=== PATIENT | female | born 1980 | race Caucasian/White ===

== ENCOUNTER 2017-10-03 05:52 | Day surgery (SDC) | payer OTHER ==
[2017-10-02 16:19] LABS: BASOPHILS # (AUTO) 0.5 K/uL (0.00-0.22); EOSINOPHILS # (AUTO) 0.1 K/uL (0-0.4); HEMOGLOBIN 13.2 g/dL (12.0-16.0); LYMPHOCYTES # (AUTO) 2.3 K/uL (2.5-16.5); MEAN CORPUSCULAR HEMOGLOBIN 26 pg (27-31); MEAN CORPUSCULAR HGB CONC 33 g/dL (33-37); MEAN CORPUSCULAR VOLUME 80 fL (80-94); MONOCYTES # (AUTO) 0.5 K/uL (0.8-1.0); NEUTROPHILS # (AUTO) 5.5 K/uL (1.8-7.7); PLATELET COUNT (AUTO) 232 K/uL (140-450); RED CELL DISTRIBUTION WIDTH 14.1 % (11.6-13.7); WHITE BLOOD COUNT (AUTO) 8.9 K/uL (4.8-10.8)
[2017-10-02 16:48] LABS: ANION GAP 11.8 (8-16); CREATININE 0.7 mg/dL (0.6-1.3); POTASSIUM 3.8 mmol/L (3.5-5.1); TOTAL BILIRUBIN 0.2 mg/dL (0.0-1.0)
[~2017-10-03] VITALS: Ht 160 cm; Wt 1.4 kg
[2017-10-03] MEDS ORDERED: MORPHINE SULFATE 4 MG/ML SYR IM/IVP PRN (07:35)
[2017-10-03] MEDS ORDERED: ACETAMINOPHEN/CODEINE 300/30MG 1 TAB PO PRN (07:35)
[2017-10-03] MEDS ORDERED: ONDANSETRON 4 MG/2 ML VIAL IVP PRN ×2 (07:35→10:05)
[2017-10-03] MEDS ORDERED: IBUPROFEN 800 MG TAB PO PRN (07:35)
[2017-10-03] MEDS ORDERED: fentaNYL 0.05 MG/ML VIAL ONE (09:45)
[2017-10-03] MEDS ORDERED: MEPERIDINE 25 MG/ML SYR ONE (09:45)
[2017-10-03] MEDS ORDERED: PROPOFOL 200 MG/20 ML VIAL IV ONE (09:45)
[2017-10-03] MEDS ORDERED: MIDAZOLAM 2 MG/2 ML VIAL ONE (09:45)
[2017-10-03] MEDS ORDERED: LACTATED RINGERS 1,000 ML IV SCH (10:01)
[2017-10-03] MEDS ORDERED: HYDROmorphone 1 MG/ML AMP IVP PRN (10:05)
[2017-10-03] MEDS ORDERED: MEPERIDINE 25 MG/ML SYR IVP PRN (10:05)
[2017-10-03] MEDS ORDERED: diphenhydrAMINE 50 MG/ML VIAL IVP PRN (10:05)
== END 2017-10-03 11:45 | disposition home or self-care (01) ==
LOC: MDS 05:52 → MMU 05:57 → MDS 11:45
PROVIDERS: ATTEND Obstetrics & Gynecology
DX: N84.0 Polyp of corpus uteri (principal); Z79.899 Other long term (current) drug therapy
CPT/HCPCS: 36415; 58558; 80053; 84702; 85025; 88305; J2175; J2250; J2704; J3010; J7120